=== PATIENT | female | born 1945 | race Caucasian/White ===

== ENCOUNTER → 2018-04-22 | Outpatient (CLI) | payer MEDICARE, OTHER ==
--- NOTE | 2018-04-22 17:23 | 2DMMODE ---
[place] [address] 2 D/M-MODE ECHOCARDIOGRAM Name: EVIN BUTTERFIELD Room: [facility]#: [id number] Admission: 04/22/18 Attend Phys: Elza Velarde MD Discharge: Date of : 43 Date of Service: 04/22/18 1723 Report #: [id number] THIS REPORT FOR: //name// APPROVED REPORT Study performed: 04/22/2018 14:53:45 EXAM: Comprehensive 2D, Doppler, and color-flow Echocardiogram Patient Location: Out-Patient Status: routine BSA: 2.07 HR: 99 bpm BP: 142/88 mmHg Other Information Study Quality: Good Indications Dyspnea 2D Dimensions IVSd: 10.27 (7-11mm) LVOT Diam: 20.12 (18-24mm) LVDd: 43.26 mm PWd: 10.02 (7-11mm) Ascending Ao: 27.94 (22-36mm) LVDs: 19.34 (25-40mm) Aortic Root: 26.00 mm Volumes Left Atrial Volume (Systole) LA ESV Index: 13.30 mL/m2 Aortic Valve AoV Peak Marc.: 1.76 m/s AO Peak Gr.: 12.39 mmHg LVOT Max P.31 mmHg AO Mean Gr.: 7.44 mmHg LVOT Mean P.14 mmHg LVOT Max V: 1.26 m/s AO V2 VTI: 43.06 cm LVOT Mean V: 0.82 m/s KRISTA (VTI): 2.02 cm2 LVOT V1 VTI: 27.34 cm Mitral Valve E/A Ratio: 0.81 MV Decel. Time: 288.00 ms MV E Max Marc.: 1.04 m/s MV PHT: 83.52 [place] [address] 2 D/M-MODE ECHOCARDIOGRAM Name: EVIN BUTTERFIELD Room: [facility]#: [id number] Admission: 04/22/18 Attend Phys: Elza Velarde MD Discharge: Date of : 43 Date of Service: 04/22/18 1723 Report #: [id number] MVA (PHT): 2.63 cm2 TDI E/Lateral E': 8.67 E/Medial E': 8.67 Medial E' Marc.: 0.12 m/s Lateral E' Marc.: 0.12 m/s Pulmonary Valve PV Peak Marc.: 1.45 m/s PV Peak Gr.: 8.36 mmHg Tricuspid Valve RAP Estimate: 5.00 mmHg TR Peak Gr.: 26.10 mmHg RVSP: 31.10 mmHg PA Pressure: 31.10 mmHg Left Ventricle The left ventricle is normal size. There is normal LV segmental wall motion. There is normal left ventricular wall thickness. Left ventricular systolic function is normal. The left ventricular ejection fraction is within the normal range. LVEF is 65-70%. Grade I - abnormal relaxation pattern. Right Ventricle The right ventricle is normal size. The right ventricular systolic function is normal. Atria The left atrium size is normal. The right atrium size is normal. Aortic Valve The aortic valve is normal in structure. No aortic regurgitation is present. There is no aortic valvular stenosis. Mitral Valve The mitral valve is normal in structure. Mild mitral regurgitation. No evidence of mitral valve stenosis. Tricuspid Valve The tricuspid valve is normal in structure. Mild tricuspid regurgitation. Pulmonic Valve The pulmonary valve is normal in structure. There is no pulmon[place] [address] 2 D/M-MODE ECHOCARDIOGRAM Name: SCOUTEVIN M Room: [facility]#: [id number] Admission: 04/22/18 Attend Phys: Elza Velarde MD Discharge: Date of : 43 Date of Service: 04/22/18 1723 Report #: [id number] Great Vessels The aortic root is normal in size. IVC is normal in size and collapses >50% with inspiration. Pericardium There is no pericardial effusion. <Conclusion> LVEF is 65-70%. Mild mitral regurgitation. Mild tricuspid regurgitation. <ELECTRONICALLY SIGNED> By: Ar Rodriguez MD, FACC 04/22/181722 22 22 Ar Rodriguez MD, FACC /INF
== END ==
LOC: M.CRD 04-13 09:00
DX: I08.1 Rheumatic disorders of both mitral and tricuspid valves (principal); E11.42 Type 2 diabetes mellitus with diabetic polyneuropathy; I10 Essential (primary) hypertension; R60.0 Localized edema

== ENCOUNTER 2021-06-18 17:09 | Inpatient (IN) | payer OTHER ==
[~2021-06-18] VITALS: Ht 152.4 cm; Wt 136.1 kg
[2021-06-18 17:11] VITALS: BP 110/89
[2021-06-18 17:35] LABS: HEMATOCRIT 38.2 % (37.0-47.0); HEMOGLOBIN 12.3 gm/dL (12.0-15.0); MCH 25.8 pg (26.0-34.0); MCHC 32.3 g/dL (28.0-37.0); MCV 79.8 fL (80.0-100.0); MPV 8.5 fl. (7.2-11.1); NUCLEATED RBCS 0 /100WBC; PLATELET COUNT* 158 thou/uL (150-400); RBC 4.79 mil/uL (4.20-5.00); RDW-CV 15.3 % (10.5-14.5); WBC 3.5 thou/uL (4.0-11.0)
[2021-06-18 17:39] LABS: CALCIUM 8.6 mg/dL (8.5-10.1); CREATININE 1.3 mg/dL (0.6-1.3); POTASSIUM 3.1 mmol/L (3.5-5.1)
[2021-06-18 17:50] LABS: ALBUMIN 2.9 g/dL (3.4-5.0); TOTAL BILIRUBIN 0.6 mg/dL (<0.1-1.0); TOTAL PROTEIN 7.2 g/dL (6.4-8.2)
[2021-06-18 17:52] LABS: ABSOLUTE LYMPHOCYTES 0.9 thou/uL (0.8-5.3); ABSOLUTE MONOCYTES 0.5 thou/uL (0.0-1.2); ABSOLUTE NEUTROPHILS 2.2 thou/uL (1.6-8.1); ATYPICAL LYMPHS 2 %; PLATELET ESTIMATE ADEQUATE
[2021-06-18 18:02] LABS: BE 1.8 mmol/L (-2 to +3); PCO2 37.5 mmHg (35.0-45.0); PO2 67.5 mmHg (75.0-100.0); pH 7.453 (7.340-7.450)
[2021-06-18] MEDS ORDERED: METFORMIN HCL500 M3 PO (18:39)
[2021-06-18] MEDS ORDERED: NORVASC10 MG PO (18:40)
[2021-06-18] MEDS ORDERED: LISINOPRIL-HCT1 EAC1 PO (18:40)
[2021-06-18] MEDS ORDERED: LEVOTHYROXINE150 MC1 PO (18:40)
[2021-06-18] MEDS ORDERED: TOPROL XL50 MG PO (18:41)
[2021-06-18 18:56] LABS: INFLUENZA A ANTIGEN Negative (Negative); INFLUENZA B ANTIGEN Negative (Negative)
[2021-06-18] MEDS ORDERED: ASA81BEC PO (21:51)
[2021-06-19 02:30] VITALS: BP 131/55
[2021-06-19 10:00] VITALS: BP 144/56
--- NOTE | 2021-06-19 10:00 | EKG ---
[place] [address] ELECTROCARDIOGRAM REPORT Name: EVIN BUTTERFIELD Room: [place] [address] ADM IN M.R.#: [id number] Admission: 06/18/21 Attend Phys: Chris Elise Discharge: Date of : 43 Date of Service: 06/18/211714 Report #: [id number] THIS REPORT FOR: //name// [facility] [place] ED Test Date: 2021-06-18 Test Time: 17:15:47 Pat Name: EVIN BUTTERFIELD Department: Room: [facility] Gender: F Media Technician: : 1945 Requested By: Magy Talamantes Order Number: [id number] MD: Héctor Carlton Measurements Intervals [place] Rate: 80 P: 8 DC: 139 QRS: 11 QRSD: 105 T: 17 QT: 416 QTc: 480 Interpretive Statements Sinus rhythm Inferior infarct, old Artifact in lead(s) I,II,aVR,aVL,aVF Low QRS voltage over anterior precordium No previous ECG available for comparison Electronically Signed On 06-19-2021 9:59:47 COMPUTER SCIENCE PROFESSOR by Héctor Carlton [email or web address] <ELECTRONICALLY SIGNED> By: Héctor Carlton MD, FAC 06/19/21 0959 1715 1715 Héctor Carlton MD, FAC /EPI
[2021-06-19 12:00] VITALS: BP 124/40
--- NOTE | 2021-06-19 12:03 | 2DMMODE ---
[place] [address] 2 D/M-MODE ECHOCARDIOGRAM Name: EVIN BUTTERFIELD Room: [place] [address] ADM IN .R.#: [id number] Admission: 06/18/21 Attend Phys: Chris Elise Discharge: Date of : 43 Date of Service: 06/19/21 1203 Report #: [id number] THIS REPORT FOR: cc: Elza Velarde MD, Lin W. MD Holkins, John M. MD [facility] ~ APPROVED REPORT Study performed: 06/19/2021 09:40:23 EXAM: Comprehensive 2D, Doppler, and color-flow Echocardiogram Patient Location: In-Patient Room #: er Status: routine BSA: 2.22 HR: 71 bpm BP: 120/49 mmHg Rhythm: NSR Other Information Study Quality: Good Indications Abnormal ECG 2D Dimensions IVSd: 8.88 (7-11mm) LVOT Diam: 19.26 (18-24mm) LVDd: 41.05 mm PWd: 8.43 (7-11mm) Ascending Ao: 29.27 (22-36mm) LVDs: 27.81 (25-40mm) Aortic Root: 28.15 mm Volumes Left Atrial Volume (Systole) LA ESV Index: 23.90 mL/m2 Aortic Valve AoV Peak Marc.: 1.72 m/s AO Peak Gr.: 11.88 mmHg LVOT Max P.04 mmHg AO Mean Gr.: 6.09 mmHg LVOT Mean P.90 mmHg LVOT Max V: 1.23 m/s AO V2 VTI: 36.83 cm LVOT Mean V: 0.78 m/s KRISTA (VTI): 2.28 cm2 LVOT V1 VTI: 28.83 [place] [address] 2 D/M-MODE ECHOCARDIOGRAM Name: EVIN BUTTERFIELD Room: [address] IN .R.#: [id number] Admission: 06/18/21 Attend Phys: Chris Elise Discharge: Date of : 43 Date of Service: 06/19/21 1203 Report #: [id number] Mitral Valve E/A Ratio: 1.02 MV Decel. Time: 277.64 ms MV E Max Marc.: 1.38 m/s MV PHT: 80.52 ms MVA (PHT): 2.73 cm2 TDI E/Lateral E': 11.50 E/Medial E': 15.33 Medial E' Marc.: 0.09 m/s Lateral E' Marc.: 0.12 m/s Pulmonary Valve PV Peak Marc.: 1.27 m/s PV Peak Gr.: 6.46 mmHg Tricuspid Valve RAP Estimate: 5.00 mmHg TR Peak Gr.: 28.92 mmHg RVSP: 33.00 mmHg PA Pressure: 33.00 mmHg Left Ventricle The left ventricle is normal size. There is normal LV segmental wall motion. Mild concentric left ventricular hypertrophy. Left ventricular systolic function is normal. The left ventricular ejection fraction is within the normal range. LVEF is 60-65%. Grade I - abnormal relaxation pattern. Right Ventricle The right ventricle is normal size. The right ventricular systolic function is normal. Atria The left atrium size is normal. The right atrium size is normal. Aortic Valve Mild aortic valve sclerosis. No aortic regurgitation is present. There is no aortic valvular stenosis. Mitral Valve The mitral valve is normal in structure. Mild mitral regurgitation. No evidence of mitral valve stenosis. Tricuspid Valve The tricuspid valve is normal in structure. Mild tricuspid regurgitation. [place] [address] 2 D/M-MODE ECHOCARDIOGRAM Name: EVIN BUTTERFIELD Room: [address] IN [facility]#: [id number] Admission: 06/18/21 Attend Phys: Chris Elise Discharge: Date of : 43 Date of Service: 06/19/21 1203 Report #: [id number] Pulmonic Valve The pulmonary valve is normal in structure. There is no pulmonic valvular regurgitation. Great Vessels The aortic root is normal in size. IVC is normal in size and collapses >50% with inspiration. Pericardium There is no pericardial effusion. <Conclusion> The left ventricle is normal size. Mild concentric left ventricular hypertrophy. Left ventricular systolic function is normal. The left ventricular ejection fraction is within the normal range. LVEF is 60-65%. Grade I - abnormal relaxation pattern. The right ventricle is normal size. The left atrium size is normal. Mild aortic valve sclerosis. No aortic regurgitation is present. There is no aortic valvular stenosis. The mitral valve is normal in structure. Mild mitral regurgitation. The tricuspid valve is normal in structure. Mild tricuspid regurgitation. Mild pulmonary hypertension. IVC is normal in size and collapses >50% with inspiration. There is no pericardial effusion. There is normal LV segmental wall motion. <ELECTRONICALLY SIGNED> By: Héctor Carlton MD, FACC 06/19/211202 02 02 Héctor Carlton MD, FACC /INF
[2021-06-19] MEDS ORDERED: LIPITOR 20 MG T20 M1 PO (13:59)
[2021-06-19 16:00] VITALS: BP 130/51
[2021-06-19 20:00] VITALS: BP 125/54
[2021-06-19 21:41] LABS: CALCIUM 8.6 mg/dL (8.5-10.1); CREATININE 1.4 mg/dL (0.6-1.3); POTASSIUM 3.5 mmol/L (3.5-5.1)
[2021-06-20] VITALS: BP 129/47
[2021-06-20 04:00] VITALS: BP 139/59
[2021-06-20 05:38] LABS: CALCIUM 8.3 mg/dL (8.5-10.1); CREATININE 1.2 mg/dL (0.6-1.3); MAGNESIUM 2.1 mg/dL (1.8-2.4); PHOSPHORUS* 3.7 mg/dL (2.5-4.9); POTASSIUM 3.5 mmol/L (3.5-5.1)
[2021-06-20 08:25] VITALS: BP 139/59
[2021-06-20 12:07] VITALS: BP 124/60
[2021-06-20 15:52] VITALS: BP 130/60
[2021-06-20 23:34] VITALS: BP 161/54
[2021-06-21 03:30] VITALS: BP 148/54
[2021-06-21 07:30] VITALS: BP 148/72
[2021-06-21 11:30] VITALS: BP 146/74
[2021-06-21 15:30] VITALS: BP 138/72
[2021-06-21 19:30] VITALS: BP 148/52
[2021-06-21 20:30] VITALS: BP 146/57
[2021-06-22 00:30] VITALS: BP 154/51
[2021-06-22 01:34] VITALS: BP 140/55
[2021-06-22 05:18] VITALS: BP 152/63
[2021-06-22] MEDS ORDERED: AUGMENTIN 875-1 EACH PO (08:45)
[2021-06-22] MEDS ORDERED: DECADRON6 MG PO (08:45)
[2021-06-22 09:15] VITALS: BP 149/65
[2021-06-22 14:17] VITALS: BP 149/65
[2021-06-22 14:56] VITALS: BP 180/74
== END 2021-06-22 17:38 | disposition home health service (06) | DRG 177 ==
LOC: M.ERS 17:09 → M.TBA-ER 19:00 → M.ORTHSURG 06-20 19:53 → M.TBA-ER 06-20 23:12
PROVIDERS: Nurse Practitioner Family; ADMIT Internal Medicine; ATTEND Internal Medicine
PROC: XW033E5 Introduction of Remdesivir Anti-infective into Peripheral Vein, Percutaneous Approach, New Technology Group 5 (ICD-10-PCS; principal; 2021-06-19)
DX: U07.1 COVID-19 (principal); J96.01 Acute respiratory failure with hypoxia; J12.82 Pneumonia due to coronavirus disease 2019; N17.0 Acute kidney failure with tubular necrosis; Z68.43 Body mass index [BMI] 50.0-59.9, adult; I10 Essential (primary) hypertension; E78.5 Hyperlipidemia, unspecified; E03.9 Hypothyroidism, unspecified; E87.6 Hypokalemia; M32.9 Systemic lupus erythematosus, unspecified; E66.9 Obesity, unspecified; E11.65 Type 2 diabetes mellitus with hyperglycemia; Z83.3 Family history of diabetes mellitus; Z82.49 Family history of ischemic heart disease and other diseases of the circulatory system; Z90.710 Acquired absence of both cervix and uterus; Z98.49 Cataract extraction status, unspecified eye

== ENCOUNTER → 2021-07-18 | Outpatient (CLI) | payer OTHER ==
[~2021-07-18] MED LIST: ASA81BEC PO; AUGMENTIN 875-1 EACH PO; DECADRON6 MG PO; LEVOTHYROXINE150 MC1 PO; LIPITOR 20 MG T20 M1 PO; LISINOPRIL-HCT1 EAC1 PO; METFORMIN HCL500 M3 PO; NORVASC10 MG PO; TOPROL XL50 MG PO
== END ==
LOC: M.ULTRA 14:29
PROVIDERS: ATTEND Internal Medicine
DX: M79.89 Other specified soft tissue disorders (principal); M79.604 Pain in right leg; M79.605 Pain in left leg